=== PATIENT | male | born 1990 | race Caucasian/White ===

== ENCOUNTER 2017-01-13 00:32 | Emergency (ER) | payer SELFPAY ==
[~2017-01-13] VITALS: Ht 185.4 cm; Wt 70.0 kg
[~2017-01-13 00:32] MED LIST: ZOFRAN ODT8 MG PO
[2017-01-13 01:34] LABS: HEMATOCRIT 44.2 % (39.0-50.0); HEMOGLOBIN 14.4 g/dl (14.0-18.0); IMMATURE GRANULOCYTES 0.1 % (0.0-1.0); MEAN CELL VOLUME 87.7 fL CALC (80.0-100.0); MEAN CORPUSCULAR HGB 28.6 pG CALC (26.0-32.0); MEAN CORPUSCULAR HGB CONC 32.6 g/L CALC (32.0-36.0); NEUT# 3.37 thou/uL (1.82-7.42); RED BLOOD COUNT 5.04 mill/uL (4.70-6.10)
[2017-01-13 01:36] LABS: URINE BILIRUBIN - DIPSTICK NEGATIVE (NEGATIVE); URINE BLOOD DIPSTICK NEGATIVE (NEGATIVE); URINE CLARITY CLEAR; URINE COLOR YELLOW; URINE GLUCOSE - DIPSTICK NEGATIVE (NEGATIVE); URINE KETONE TRACE mg/dL (NEGATIVE); URINE LEUK ESTERASE NEGATIVE (NEGATIVE); URINE NITRITE - DIPSTICK NEGATIVE (Negative); URINE PROTEIN - DIPSTICK NEGATIVE (NEG-TRACE)
[2017-01-13 02:05] LABS: ALKALINE PHOSPHATASE 82 u/l (38-126); ANION GAP 13 (6-22 (CALC)); BILIRUBIN, TOTAL 0.3 mg/dL (0.0-1.4); BUN 11 mg/dL (9-20); BUN/CREATININE RATIO 13 (12-20 (CALC)); CALCIUM 9.7 mg/dL (8.4-10.2); CARBON DIOXIDE 29 mmol/l (22-30); CHLORIDE 106 mmol/l (95-108); CREATININE 0.8 mg/dL (0.7-1.3); GFR > 60 ML/MIN (>=60 (CALC)); GFR FOR AFR.AMER. > 60 ML/MIN (>=60 (CALC)); GLUCOSE 84 mg/dL (75-110); SGOT/AST 22 u/l (17-59); SGPT/ALT 35 u/l (21-72); SODIUM 144 mmol/l (137-146)
[2017-01-13] MEDS ORDERED: CIPROFLOXACN500 MG PO (03:31)
[2017-01-13 03:44] VITALS: BP 121/62
== END 2017-01-13 03:44 | disposition home or self-care (01) | DRG 700 ==
LOC: ED 00:32
PROVIDERS: Emergency Medicine
DX: N28.89 Other specified disorders of kidney and ureter (principal); R30.0 Dysuria; R10.11 Right upper quadrant pain; R10.13 Epigastric pain; R10.12 Left upper quadrant pain; R35.0 Frequency of micturition
CPT/HCPCS: Q9967

== ENCOUNTER 2017-02-13 16:53 | Emergency (ER) | payer SELFPAY ==
[~2017-02-13] VITALS: Ht 185.4 cm; Wt 72.0 kg
[~2017-02-13 16:53] MED LIST changes: +CIPROFLOXACN500 MG PO
[2017-02-13] MEDS ORDERED: TYLENOL # 31 TA1 PO (17:18)
[2017-02-13] MEDS ORDERED: SILVADENE1 % EX (17:18)
[2017-02-13 17:53] VITALS: BP 130/70
== END 2017-02-13 18:00 | disposition home or self-care (01) | DRG 935 ==
LOC: ED 16:53
PROC: 2W21X4Z Dressing of Face using Bandage (ICD-10-PCS; principal; 2017-02-13)
PROC: 2W2CX4Z Dressing of Right Lower Arm using Bandage (ICD-10-PCS; 2017-02-13)
PROC: 2W2DX4Z Dressing of Left Lower Arm using Bandage (ICD-10-PCS; 2017-02-13)
DX: T20.12XA Burn of first degree of lip(s), initial encounter (principal); T31.0 Burns involving less than 10% of body surface; T22.111A Burn of first degree of right forearm, initial encounter; T22.212A Burn of second degree of left forearm, initial encounter; T22.221A Burn of second degree of right elbow, initial encounter; X08.8XXA Exposure to other specified smoke, fire and flames, initial encounter; Y93.89 Activity, other specified; Y92.009 Unspecified place in unspecified non-institutional (private) residence as the place of occurrence of the external cause

== ENCOUNTER 2017-03-17 15:03 | Emergency (ER) | payer SELFPAY ==
[~2017-03-17] VITALS: Ht 185.4 cm; Wt 90.0 kg
[~2017-03-17 15:03] MED LIST changes: +SILVADENE1 % EX; +TYLENOL # 31 TA1 PO
[2017-03-17] MEDS ORDERED: ERYTHROMYCIN O3.5 GM OU (18:20)
[2017-03-17 18:32] VITALS: BP 130/80
== END 2017-03-17 18:32 | disposition home or self-care (01) | DRG 125 ==
LOC: ED 15:03
DX: S05.02XA Injury of conjunctiva and corneal abrasion without foreign body, left eye, initial encounter (principal); H53.8 Other visual disturbances; H57.12 Ocular pain, left eye; W22.8XXA Striking against or struck by other objects, initial encounter; Y93.59 Activity, other involving other sports and athletics played individually; Y92.821 Forest as the place of occurrence of the external cause

== ENCOUNTER 2018-07-09 10:34 | Emergency (ER) | payer OTHER ==
[~2018-07-09] VITALS: Ht 185.4 cm; Wt 81.0 kg
[~2018-07-09 10:34] MED LIST changes: +ERYTHROMYCIN O3.5 GM OU
[2018-07-09] MEDS ORDERED: CLEOCIN300 MG PO (10:50)
[2018-07-09] MEDS ORDERED: TORADOL PO (10:50)
[2018-07-09 11:10] VITALS: BP 130/87
== END 2018-07-09 11:10 | disposition home or self-care (01) | DRG 159 ==
LOC: ED 10:34
DX: K08.89 Other specified disorders of teeth and supporting structures (principal); F17.210 Nicotine dependence, cigarettes, uncomplicated

== ENCOUNTER 2018-08-08 23:13 | Emergency (ER) | payer OTHER ==
[~2018-08-08] VITALS: Ht 185.4 cm; Wt 72.7 kg
[~2018-08-08 23:13] MED LIST changes: +CLEOCIN300 MG PO; +TORADOL PO
[2018-08-08] MEDS ORDERED: LORTAB 1010 MG PO (23:42)
[2018-08-08] MEDS ORDERED: CLEOCIN300 MG PO (23:42)
[2018-08-09 00:12] VITALS: BP 144/80
[2018-08-09] MEDS ORDERED: PHENERGAN25 MG/TAB PO (18:00)
== END 2018-08-09 00:14 | disposition home or self-care (01) | DRG 159 ==
LOC: ED 23:13
DX: K04.7 Periapical abscess without sinus (principal); K08.89 Other specified disorders of teeth and supporting structures; F17.210 Nicotine dependence, cigarettes, uncomplicated; R22.0 Localized swelling, mass and lump, head

== ENCOUNTER 2018-08-09 15:58 | Emergency (ER) | payer OTHER ==
[~2018-08-09] VITALS: Ht 185.4 cm; Wt 72.0 kg
[~2018-08-09 15:58] MED LIST changes: +LORTAB 1010 MG PO
[2018-08-09 17:22] LABS: HEMOGLOBIN 14.2 g/dl (14.0-18.0); IMMATURE GRANULOCYTES 0.3 % (0.0-5.0); MEAN CELL VOLUME 85.5 fL CALC (80.0-100.0); MEAN CORPUSCULAR HGB 28.2 pG CALC (26.0-32.0); NEUT# 6.5 thou/uL (1.82-7.42); RED BLOOD COUNT 5.03 mill/uL (4.70-6.10); RED CELL DISTRI WIDTH 12.6 % (11.5-15.5)
[2018-08-09 17:35] LABS: ALKALINE PHOSPHATASE 92 u/l (38-126); AMYLASE < 30 u/l (30-110); ANION GAP 14 (6-22 (CALC)); BILIRUBIN, TOTAL 1.2 mg/dL (0.0-1.4); BUN 12 mg/dL (9-20); BUN/CREATININE RATIO 16 (12-20 (CALC)); CARBON DIOXIDE 25 mmol/l (22-30); CHLORIDE 100 mmol/l (95-108); CREATININE 0.7 mg/dL (0.7-1.3); GFR > 60 ML/MIN (>=60 (CALC)); GFR FOR AFR.AMER. > 60 ML/MIN (>=60 (CALC)); LIPASE 33 u/l (23-300); POTASSIUM 4.3 mmol/l (3.5-5.1); SGOT/AST 577 u/l (17-59); SODIUM 135 mmol/l (137-146)
[2018-08-09] MEDS ORDERED: PHENERGAN25 MG/TAB PO (18:00)
[2018-08-09 18:09] VITALS: BP 142/72
== END 2018-08-09 18:22 | disposition home or self-care (01) | DRG 159 ==
LOC: ED 15:58
PROVIDERS: Family Medicine
DX: K04.7 Periapical abscess without sinus (principal); R11.2 Nausea with vomiting, unspecified; R74.8 Abnormal levels of other serum enzymes; K08.89 Other specified disorders of teeth and supporting structures; R42 Dizziness and giddiness

== ENCOUNTER 2018-12-17 21:19 | Emergency (ER) | payer SELFPAY ==
[~2018-12-17] VITALS: Ht 185.4 cm; Wt 66.4 kg
[~2018-12-17 21:19] MED LIST changes: +PHENERGAN25 MG/TAB PO
[2018-12-17] MEDS ORDERED: IBUPROFEN600 MG PO (22:54)
[2018-12-17 23:09] VITALS: BP 133/69
== END 2018-12-17 23:00 | disposition home or self-care (01) | DRG 605 ==
LOC: ED 21:19
DX: S20.212A Contusion of left front wall of thorax, initial encounter (principal); F17.200 Nicotine dependence, unspecified, uncomplicated; Y04.0XXA Assault by unarmed brawl or fight, initial encounter

== ENCOUNTER 2019-06-27 | Emergency (ER) | payer BC ==
[~2019-06-27] MED LIST changes: +IBUPROFEN600 MG PO
[2019-06-27 22:53] LABS: URINE BILIRUBIN - DIPSTICK NEGATIVE (NEGATIVE); URINE BLOOD DIPSTICK NEGATIVE (NEGATIVE); URINE COLOR YELLOW; URINE GLUCOSE - DIPSTICK NEGATIVE (NEGATIVE); URINE KETONE NEGATIVE (NEGATIVE); URINE LEUK ESTERASE NEGATIVE (NEGATIVE); URINE NITRITE - DIPSTICK NEGATIVE (Negative); URINE PROTEIN - DIPSTICK NEGATIVE (NEG-TRACE); URINE UROBILINOGEN - DIPSTICK 0.2 E.U./dL (0.2)
[2019-06-27 23:01] LABS: BARBITURATES NEGATIVE (NEGATIVE); COCAINE NEGATIVE (NEGATIVE); METHADONE NEGATIVE (NEGATIVE); OXCYCODONE NEGATIVE (NEGATIVE); TETRAHYDROCANNABIONOL NEGATIVE (NEGATIVE); TRICYLIC ANTIDEPRESSANTS NEGATIVE (NEGATIVE)
[2019-06-27] MEDS ORDERED: ONDANSETRON4 MG PO (23:16)
[2019-06-27] MEDS ORDERED: FIORINA1 PO (23:16)
== END 2019-06-27 23:26 | disposition home or self-care (01) | DRG 103 ==
PROVIDERS: Emergency Medicine
DX: R51 Headache (principal); F17.210 Nicotine dependence, cigarettes, uncomplicated

== ENCOUNTER 2020-03-15 23:47 | Emergency (ER) | payer OTHER ==
[~2020-03-15] VITALS: Ht 185.4 cm; Wt 81.8 kg
[~2020-03-15 23:47] MED LIST changes: +FIORINA1 PO; +ONDANSETRON4 MG PO
[2020-03-15] MEDS ORDERED: WELLBUTRIN XL300 MG PO (23:58)
[2020-03-16] MEDS ORDERED: CLINDAMYCIN300 M1 PO (00:04)
[2020-03-16] MEDS ORDERED: TYLENOL # 31 TAB PO (00:04)
[2020-03-16] MEDS ORDERED: VOLTAREN75 MG PO (00:04)
[2020-03-16 00:49] VITALS: BP 141/87
== END 2020-03-16 00:49 | disposition home or self-care (01) | DRG 159 ==
LOC: ED 23:47
DX: K04.7 Periapical abscess without sinus (principal); K02.9 Dental caries, unspecified; F32.9 Major depressive disorder, single episode, unspecified; F17.200 Nicotine dependence, unspecified, uncomplicated

== ENCOUNTER 2020-03-29 13:59 | Emergency (ER) | payer OTHER ==
[~2020-03-29] VITALS: Ht 185.4 cm; Wt 81.8 kg
[~2020-03-29 13:59] MED LIST changes: +CLINDAMYCIN300 M1 PO; +TYLENOL # 31 TAB PO; +VOLTAREN75 MG PO; +WELLBUTRIN XL300 MG PO
[2020-03-29] MEDS ORDERED: KEFLEX500 M1 PO (14:31)
[2020-03-29 14:44] VITALS: BP 129/82
== END 2020-03-29 14:44 | disposition home or self-care (01) | DRG 914 ==
LOC: ED 13:59
PROC: 0HQMXZZ Repair Right Foot Skin, External Approach (ICD-10-PCS; principal; 2020-03-29)
DX: S91.321A Laceration with foreign body, right foot, initial encounter (principal); F32.9 Major depressive disorder, single episode, unspecified; F17.210 Nicotine dependence, cigarettes, uncomplicated; W22.8XXA Striking against or struck by other objects, initial encounter; Y92.008 Other place in unspecified non-institutional (private) residence as the place of occurrence of the external cause

== ENCOUNTER 2020-05-02 14:37 | Emergency (ER) | payer OTHER ==
[~2020-05-02] VITALS: Ht 185.4 cm; Wt 85.0 kg
[~2020-05-02 14:37] MED LIST changes: +KEFLEX500 M1 PO
[2020-05-02] MEDS ORDERED: OFLOXACIN0.3 % AS (15:20)
[2020-05-02 15:54] VITALS: BP 118/65
== END 2020-05-02 15:54 | disposition home or self-care (01) | DRG 156 ==
LOC: ED 14:37
PROC: 3E1B78Z Irrigation of Ear using Irrigating Substance, Via Natural or Artificial Opening (ICD-10-PCS; principal; 2020-05-02)
DX: H61.22 Impacted cerumen, left ear (principal); S00.412A Abrasion of left ear, initial encounter; F32.9 Major depressive disorder, single episode, unspecified; F17.200 Nicotine dependence, unspecified, uncomplicated; X58.XXXA Exposure to other specified factors, initial encounter